=== PATIENT | male | born 1955 | race Caucasian/White ===

== ENCOUNTER 2020-10-06 10:47 | Day surgery (SDC) | payer BC, MEDICARE ==
[2020-10-05 12:35] LABS: BASOPHILS % (AUTO) 0.5 % (0-1); EOSINOPHILS # (AUTO) 0.1 X10'3 (0-0.9); EOSINOPHILS % (AUTO) 1.4 % (0-6); HEMATOCRIT 46.7 % (42.0-52.0); HEMOGLOBIN 15.3 g/dl (14.0-17.9); LYMPHOCYTES % (AUTO) 21.2 % (21-51); MEAN CORPUSCULAR HEMOGLOBIN 27.5 PG (27.0-31.0); MEAN CORPUSCULAR HGB CONC 32.8 g/dL (33.0-36.5); MEAN CORPUSCULAR VOLUME 84.1 FL (78-98); MEAN PLATELET VOLUME 8.9 FL (7.4-10.4); MONOCYTES # (AUTO) 0.7 X10'3 (0-0.9); MONOCYTES % (AUTO) 7.8 % (2-12); NEUTROPHILS # (AUTO) 6.4 X10'3 (1.8-7.7); NEUTROPHILS % (AUTO) 69.1 % (42-75); PLATELET COUNT 159 X10'3 (140-440); RED BLOOD COUNT 5.56 X10'6 (4.70-6.10); RED CELL DISTRIBUTION WIDTH 14.7 % (11.5-14.5); WHITE BLOOD COUNT 9.2 X10'3 (4.5-11.0)
[2020-10-05 12:48] LABS: ALBUMIN 3.9 G/DL (3.4-5.0); ANION GAP 8 (8-16); BLOOD UREA NITROGEN 16 MG/DL (7-18); BUN/CREATININE RATIO 17.4 (5.4-32.0); CALCIUM 9.4 MG/DL (8.5-10.1); CHLORIDE 105 MMOL/L (99-107); CREATININE 0.92 MG/DL (0.60-1.10); GLUCOSE 96 MG/DL (70-104); POTASSIUM 4.2 MMOL/L (3.5-5.1); SODIUM 141 MMOL/L (135-145); TOTAL CARBON DIOXIDE 28.4 MMOL/L (24-32); eGFR 83 ML/MIN
[2020-10-05 12:49] LABS: PARTIAL THROMBOPLASTIN TIME 29 SECONDS (22-32)
[~2020-10-06] VITALS: Ht 185.4 cm; Wt 104.9 kg
[2020-10-06] VITALS (10 sets, daily range): BP systolic 118–153; BP diastolic 53–82
[~2020-10-06 10:47] MED LIST: ASPI-41 PO; HYDR-4353 PO; LEVO500T89 PO; METO25TA6 PO; NIA500ERT PO
[2020-10-06] MEDS ORDERED: LIDOcaine/PRILOcaine 5gm cream TP ONE (11:05)
[2020-10-06] MEDS ORDERED: normal saline 1,000 ML IV SCH (11:05)
[2020-10-06] MEDS ORDERED: LORazepam 0.5 MG tablet PO PRN (11:05)
[2020-10-06] MEDS ORDERED: diphenhydrAMINE 25mg capsule PO PRN (11:05)
[2020-10-06] MEDS ORDERED: METO50TA16 PO (11:17)
[2020-10-06] MEDS ORDERED: ADV50100 IH (11:17)
[2020-10-06] MEDS ORDERED: ALBU8.5H8 INH (11:17)
[2020-10-06] MEDS ORDERED: PRAV40TA3 PO (11:17)
[2020-10-06] MEDS ORDERED: ASCO500C17 PO (11:17)
[2020-10-06] MEDS ORDERED: MV-M1TAB19 PO (11:17)
[2020-10-06] MEDS ORDERED: TRAZ-251 PO (11:17)
[2020-10-06] MEDS ORDERED: CA C1TAB86 PO (11:17)
[2020-10-06] MEDS ORDERED: NIAC500C3 PO (11:17)
[2020-10-06] MEDS ORDERED: LIDOcaine 1% (10mg/ml)w/preservative injection 20ml MDV ONE (11:24)
[2020-10-06] MEDS ORDERED: heparin 1,000unit/ml 10ml vial 10 ML ONE (11:25)
[2020-10-06] MEDS ORDERED: midazolam 2 mg/2 ml injection ONE (11:25)
[2020-10-06] MEDS ORDERED: iohexol 350 MG/1 ML 200ml bottle ONE (11:25)
[2020-10-06] MEDS ORDERED: heparin 1,000 UNITS/NS 500ml 500 ML ONE ×2 (11:25)
[2020-10-06] MEDS ORDERED: nitroGLYCERIN-Tridil 50MG/D5W 250 ML IV ONE (11:25)
[2020-10-06] MEDS ORDERED: fentaNYL/PF 50MCG/1 ML 2ML syringe ONE (11:25)
[2020-10-06] MEDS ORDERED: iohexol 350 MG/ML 50ML vial IV ONE (11:25)
[2020-10-06] MEDS ORDERED: normal saline 1,000 ML IV ONE (13:05)
== END 2020-10-06 16:55 | disposition home or self-care (01) ==
LOC: SSTAY O 10:47
PROVIDERS: ATTEND Internal Medicine Cardiovascular Disease
DX: R94.39 Abnormal result of other cardiovascular function study (principal); I25.119 Atherosclerotic heart disease of native coronary artery with unspecified angina pectoris; I25.82 Chronic total occlusion of coronary artery; E78.5 Hyperlipidemia, unspecified; J44.9 Chronic obstructive pulmonary disease, unspecified; I25.2 Old myocardial infarction; I10 Essential (primary) hypertension; Z79.01 Long term (current) use of anticoagulants; Z95.5 Presence of coronary angioplasty implant and graft; Z79.899 Other long term (current) drug therapy; Z79.82 Long term (current) use of aspirin; Z98.1 Arthrodesis status; Z96.653 Presence of artificial knee joint, bilateral; Z98.890 Other specified postprocedural states; Z87.891 Personal history of nicotine dependence; Z82.49 Family history of ischemic heart disease and other diseases of the circulatory system
CPT/HCPCS: 36415; 76937; 80048; 85025; 85610; 85730; 93005; 93459; 99152; 99153; C1760; C1769; J1644; J2001; J2250; J3010; Q9967; 93567; A4620; A6258; J3490

== ENCOUNTER 2024-06-04 10:28 | Day surgery (SDC) | payer BC, MEDICARE ==
[2024-06-03 13:45] LABS: BASOPHILS # (AUTO) 0.1 X10'3 (0-0.2); BASOPHILS % (AUTO) 0.7 % (0-1); EOSINOPHILS # (AUTO) 0.1 X10'3 (0-0.9); EOSINOPHILS % (AUTO) 0.6 % (0-6); HEMATOCRIT 41.7 % (42.0-52.0); HEMOGLOBIN 13.8 g/dl (14.0-17.9); LYMPHOCYTES # (AUTO) 1.5 X10'3 (1.1-4.8); MEAN CORPUSCULAR HGB CONC 33.1 g/dL (33.0-36.5); MEAN CORPUSCULAR VOLUME 81.5 FL (78-98); MEAN PLATELET VOLUME 8.7 FL (7.4-10.4); MONOCYTES # (AUTO) 0.9 X10'3 (0-0.9); MONOCYTES % (AUTO) 9.6 % (2-12); NEUTROPHILS # (AUTO) 6.8 X10'3 (1.8-7.7); NEUTROPHILS % (AUTO) 73.1 % (42-75); PLATELET COUNT 151 X10'3 (140-440); RED BLOOD COUNT 5.11 X10'6 (4.70-6.10); RED CELL DISTRIBUTION WIDTH 15.9 % (11.5-14.5); WHITE BLOOD COUNT 9.3 X10'3 (4.5-11.0)
[2024-06-03 13:56] LABS: ALBUMIN 3.4 G/DL (3.4-5.0); ANION GAP 8 (8-16); BLOOD UREA NITROGEN 19 MG/DL (7-18); CALCIUM 8.8 MG/DL (8.5-10.1); CHLORIDE 104 MMOL/L (99-107); CREATININE 1.36 MG/DL (0.60-1.10); GLUCOSE 111 MG/DL (70-104); SODIUM 139 MMOL/L (135-145); eGFR 52 ML/MIN
[2024-06-03 14:00] LABS: APTT 27 SECONDS (22-32); INR 1.1 INR; PROTHROMBIN TIME 11.4 SECONDS (9.0-12.0)
[2024-06-04] VITALS (11 sets, daily range): BP systolic 111–166; BP diastolic 72–118; PULSE 68–79; RESP 12–14; TEMP 98.2; O2SAT 92–97
[~2024-06-04] VITALS: Ht 182.9 cm; Wt 99.6 kg
[~2024-06-04 10:28] MED LIST changes: +ADV50100 IH; +ALBU8.5H17 INH; +ASCO500C17 PO; -ASPI-41 PO; +CA C1TAB86 PO; -LEVO500T89 PO; -METO25TA6 PO; +METO50TA16 PO; +MV-M1TAB19 PO; -NIA500ERT PO; +NIAC500C8 PO; +PRAV40TA3 PO; +TRAZ-251 PO
[2024-06-04] MEDS ORDERED: normal saline 1,000 ML IV SCH (10:45)
[2024-06-04] MEDS ORDERED: ZOLP12.570 PO (11:48)
[2024-06-04] MEDS ORDERED: ROSU40TA71 PO (11:48)
[2024-06-04] MEDS ORDERED: OXYC1TAB17 PO (11:54)
[2024-06-04] MEDS ORDERED: LOSA25TA41 PO (11:54)
[2024-06-04] MEDS ORDERED: ASPI-611 PO (11:54)
[2024-06-04] MEDS: diphenhydrAMINE 25mg capsule PO PRN (12:00)
[2024-06-04] MEDS: sodium bicarbonate 1meq/ml syr 150 ML in dextrose 5%-water 1,000 ML IV SCH (12:00)
[2024-06-04] MEDS: LORazepam 0.5 MG tablet PO PRN (12:00)
[2024-06-04] MEDS ORDERED: verapamil 2.5 mg/ml inj IV ONE (13:25)
[2024-06-04] MEDS ORDERED: fentaNYL/PF 50MCG/1 ML 2ML syringe ONE (13:25)
[2024-06-04] MEDS ORDERED: LIDOcaine 1% (10mg/ml) 2ml vial ONE (13:25)
[2024-06-04] MEDS ORDERED: heparin 1,000unit/ml 10ml vial 10 ML ONE (13:26)
[2024-06-04] MEDS ORDERED: iohexol 350MG/ML 100ml bottle IV ONE ×2 (13:26→14:21)
[2024-06-04] MEDS ORDERED: midazolam 1 mg/ML 2ml injection ONE (13:26)
[2024-06-04] MEDS ORDERED: nitroGLYCERIN 500mcg/5mL D5W 5 ML IV ONE (13:30)
[2024-06-04] MEDS ORDERED: iohexol 350 MG/ML 50ML vial IV ONE (13:31)
[2024-06-04 14:48] LABS: ISTAT HGB ART 13.6 g/dl (14.0-17.9); ISTAT Hct ART 40 %PCV (42-52); ISTAT O2 SATURATION ARTERIAL 92 % (95-98); ISTAT SOURCE ART
[2024-06-04] MEDS ORDERED: HYDROcodone/acetaminophen 10/325mg tab PO PRN (15:30)
[2024-06-04] MEDS ORDERED: HYDROcodone/acetaminophen 5mg/325mg tablet PO PRN (15:30)
[2024-06-04] MEDS ORDERED: ISOS60TA71 PO (16:38)
[2024-06-04] MEDS ORDERED: DAPA10TA PO (19:02)
[2024-06-04] MEDS ORDERED: FURO-150 PO (19:02)
== END 2024-06-04 19:15 | disposition home or self-care (01) ==
LOC: SSTAY O 10:28
PROVIDERS: ATTEND Internal Medicine Cardiovascular Disease
DX: R94.39 Abnormal result of other cardiovascular function study (principal); I25.119 Atherosclerotic heart disease of native coronary artery with unspecified angina pectoris; I45.10 Unspecified right bundle-branch block; I25.2 Old myocardial infarction; I11.9 Hypertensive heart disease without heart failure; E11.9 Type 2 diabetes mellitus without complications; I48.0 Paroxysmal atrial fibrillation; J44.9 Chronic obstructive pulmonary disease, unspecified; E78.5 Hyperlipidemia, unspecified; K21.9 Gastro-esophageal reflux disease without esophagitis; G47.30 Sleep apnea, unspecified; F17.211 Nicotine dependence, cigarettes, in remission; Z79.891 Long term (current) use of opiate analgesic; Z79.899 Other long term (current) drug therapy; Z95.1 Presence of aortocoronary bypass graft; Z96.653 Presence of artificial knee joint, bilateral; Z95.5 Presence of coronary angioplasty implant and graft; Z98.890 Other specified postprocedural states; Z82.49 Family history of ischemic heart disease and other diseases of the circulatory system
CPT/HCPCS: 36415; 76937; 80048; 82803; 85014; 85025; 85610; 85730; 93005; 93461; 99152; 99153; A6258; J1644; J2250; J3010; J3490; J7030; J7070; Q0163; Q9967; A6402; C1725; C1751; C1894

== ENCOUNTER 2024-08-22 09:03 | Inpatient (IN) | payer BC, MEDICARE ==
[2024-08-22] VITALS (9 sets, daily range): BP systolic 131; BP diastolic 80; PULSE 73–93; RESP 16–26; TEMP 99.2; O2SAT 93–99
[~2024-08-22] VITALS: Ht 182.9 cm; Wt 102.0 kg
[~2024-08-22 09:03] MED LIST changes: -ASCO500C17 PO; +ASPI-611 PO; -CA C1TAB86 PO; +DAPA10TA PO; +FURO-150 PO; -HYDR-4353 PO; +LOSA25TA41 PO; -METO50TA16 PO; -MV-M1TAB19 PO; -NIAC500C8 PO; +OXYC1TAB17 PO; -PRAV40TA3 PO; +ROSU40TA71 PO; -TRAZ-251 PO; +ZOLP12.570 PO
[2024-08-22] MEDS: ipratropium/albuterol 3ml nebule NEB ONE (09:34)
[2024-08-22 09:49] LABS: BASOPHILS # (AUTO) 0.1 X10'3 (0-0.2); BASOPHILS % (AUTO) 0.7 % (0-1); EOSINOPHILS # (AUTO) 0.1 X10'3 (0-0.9); EOSINOPHILS % (AUTO) 1.3 % (0-6); HEMATOCRIT 43.8 % (42.0-52.0); HEMOGLOBIN 14.1 g/dl (14.0-17.9); LYMPHOCYTES # (AUTO) 2.4 X10'3 (1.1-4.8); LYMPHOCYTES % (AUTO) 21.3 % (21-51); MEAN CORPUSCULAR HEMOGLOBIN 25.8 PG (27.0-31.0); MEAN CORPUSCULAR HGB CONC 32.2 g/dL (33.0-36.5); MEAN CORPUSCULAR VOLUME 80.1 FL (78-98); MEAN PLATELET VOLUME 8.8 FL (7.4-10.4); MONOCYTES # (AUTO) 0.9 X10'3 (0-0.9); MONOCYTES % (AUTO) 8.5 % (2-12); NEUTROPHILS # (AUTO) 7.5 X10'3 (1.8-7.7); NEUTROPHILS % (AUTO) 68.2 % (42-75); PLATELET COUNT 223 X10'3 (140-440); RED BLOOD COUNT 5.47 X10'6 (4.70-6.10)
[2024-08-22] MEDS ORDERED: iohexol 350MG/ML 100ml bottle IV ONE (09:54)
[2024-08-22 10:06] LABS: ALANINE AMINOTRANSFERASE 15 U/L (12-78); ALBUMIN 3.2 G/DL (3.4-5.0); ALBUMIN/GLOBULIN RATIO 0.8 (1.1-1.5); ALKALINE PHOSPHATASE 131 IU/L (46-116); ANION GAP 13 (8-16); ASPARTATE AMINO TRANSFERASE 25 U/L (10-37); BILIRUBIN,TOTAL 1.6 MG/DL (0.1-1.0); BLOOD UREA NITROGEN 14 MG/DL (7-18); CALCIUM 8.9 MG/DL (8.5-10.1); CHLORIDE 101 MMOL/L (99-107); CREATININE 1.27 MG/DL (0.60-1.10); GLUCOSE 81 MG/DL (70-104); SODIUM 136 MMOL/L (135-145); TOTAL CARBON DIOXIDE 22.2 MMOL/L (24-32); TOTAL PROTEIN 7.3 G/DL (6.4-8.2); eCRCL 62 ML/MIN; eGFR 57 ML/MIN
[2024-08-22 10:15] LABS: PRO BRAIN NATRIURETIC PEPTIDE 10026 PG/ML (0-125)
[2024-08-22] MEDS ORDERED: ISOS60TA71 PO (11:47)
[2024-08-22] MEDS: oxyCODONE/APAP 10/325mg tablet PO ONE (12:04)
[2024-08-22] MEDS: furosemide 10 MG/1 ML 10ml inj IV ONE (13:05)
[2024-08-22] MEDS ORDERED: acetaminophen 325mg tablet PO PRN (13:10)
[2024-08-22] MEDS ORDERED: ondansetron/PF 4mg/2ml inj IV PRN (13:10)
[2024-08-22] MEDS ORDERED: potassium Cl 20 mEq SR tablet PO PRN ×2 (13:10)
[2024-08-22] MEDS ORDERED: mag hydrox/Alum hydrox/simeth 30ml oral suspension PO PRN (13:10)
[2024-08-22] MEDS ORDERED: magnesium sulf-water 4G/100mL 100 ML IV PRN (13:10)
[2024-08-22] MEDS ORDERED: magnesium sulf-water 2g/50mL 50 ML IV PRN (13:10)
[2024-08-22] MEDS ORDERED: potassium Cl 40MEQ/1/2NS 520ml 520 ML IV PRN (13:10)
[2024-08-22] MEDS ORDERED: magnesium Cl slow-release 64mg tablet PO PRN (13:10)
[2024-08-22] MEDS: PERFLUTREN PROTEIN-A MICROSPHR (Optison) 0.22 MG/ML 3ML VIAL IV ONE (13:19)
[2024-08-22] MEDS ORDERED: hydrALAZINE 20mg/ml inj. IV PRN (13:20)
[2024-08-22] MEDS: MESSAGE TO NURSING IV ONE (15:30)
[2024-08-22 15:32] LABS: BASOPHILS # (AUTO) 0.1 X10'3 (0-0.2); BASOPHILS % (AUTO) 0.6 % (0-1); EOSINOPHILS # (AUTO) 0.1 X10'3 (0-0.9); EOSINOPHILS % (AUTO) 0.7 % (0-6); HEMATOCRIT 36.8 % (42.0-52.0); HEMOGLOBIN 11.8 g/dl (14.0-17.9); LYMPHOCYTES # (AUTO) 1.2 X10'3 (1.1-4.8); LYMPHOCYTES % (AUTO) 12.1 % (21-51); MEAN CORPUSCULAR HEMOGLOBIN 25.1 PG (27.0-31.0); MEAN CORPUSCULAR HGB CONC 31.9 g/dL (33.0-36.5); MEAN CORPUSCULAR VOLUME 78.6 FL (78-98); MEAN PLATELET VOLUME 8.2 FL (7.4-10.4); MONOCYTES # (AUTO) 0.9 X10'3 (0-0.9); MONOCYTES % (AUTO) 9.7 % (2-12); NEUTROPHILS # (AUTO) 7.3 X10'3 (1.8-7.7); NEUTROPHILS % (AUTO) 76.9 % (42-75); PLATELET COUNT 180 X10'3 (140-440); RED BLOOD COUNT 4.68 X10'6 (4.70-6.10); RED CELL DISTRIBUTION WIDTH 16.5 % (11.5-14.5); WHITE BLOOD COUNT 9.5 X10'3 (4.5-11.0)
[2024-08-22 15:45] LABS: ANION GAP 7 (8-16); BLOOD UREA NITROGEN 15 MG/DL (7-18); BUN/CREATININE RATIO 11.4 (10.0-20.0); CHLORIDE 102 MMOL/L (99-107); CREATININE 1.32 MG/DL (0.60-1.10); GLUCOSE 79 MG/DL (70-104); POTASSIUM 3.8 MMOL/L (3.5-5.1); SODIUM 134 MMOL/L (135-145); TOTAL CARBON DIOXIDE 25.3 MMOL/L (24-32)
[2024-08-22 15:46] LABS: ALANINE AMINOTRANSFERASE 12 U/L (12-78); ALBUMIN 2.7 G/DL (3.4-5.0); ALBUMIN/GLOBULIN RATIO 0.8 (1.1-1.5); ALKALINE PHOSPHATASE 105 IU/L (46-116); ASPARTATE AMINO TRANSFERASE 19 U/L (10-37); BILIRUBIN,TOTAL 1.6 MG/DL (0.1-1.0); CALCIUM 8.1 MG/DL (8.5-10.1); TOTAL PROTEIN 6.1 G/DL (6.4-8.2); eCRCL 60 ML/MIN; eGFR 54 ML/MIN
[2024-08-22] MEDS: heparin 10,000 units/1 ML INJ IV ONE (15:58)
[2024-08-22] MEDS ORDERED: heparin, porcine 5000 units/ml vial SQ SCH (16:00)
[2024-08-22] MEDS: methylPREDNISolone sod succ 125mg/2ml vial IV SCH (16:00)
[2024-08-22] MEDS: heparin 25,000 UNIT/250ml bag 250 ML IV PRN (16:06)
[2024-08-22] MEDS: CefTRIAXone 2gm/D5W 50ml BAG 50 ML IV SCH (16:57)
[2024-08-22] MEDS: ipratropium/albuterol 3ml nebule NEB SCH (17:11)
[2024-08-22] MEDS: metoprolol succinate 25mg (24-HOUR) SR. Tablet PO SCH (17:28)
[2024-08-22] MEDS: azithromycin/NS 500mg/250ml 250 ML IV SCH (17:38)
[2024-08-22 17:45] LABS: ABG BASE EXCESS -3.5 mmol/L (-2.0-3.0); ABG HCO3 19.8 mmol/L (21.0-28.0); ABG OXYGEN SATURATION 95.4 % (94.0-98.0); ABG PCO2 (T) 30.7 mmHg (35.0-48.0); ABG PH (T) 7.428 (7.350-7.450); ABG PO2 (T) 75.2 mmHg (83.0-108.0); ALLEN'S TEST POSITIVE; FCOHb 1.2 % (0.5-1.5); FHHb 4.5 % (0.0-5.0); FLOW 3 L/min; FO2Hb 94.3 % (94.0-98.0); MODE NASAL CANNULA
[2024-08-22] MEDS ORDERED: HYDROcodone/acetaminophen 5mg/325mg tablet PO PRN (18:05)
[2024-08-22] MEDS ORDERED: oxyCODONE/APAP 10/325mg tablet PO PRN (19:10)
[2024-08-22] MEDS: sennosides/docusate sodium tablet PO SCH (19:30)
[2024-08-22] MEDS: docusate sod 100mg capsule PO SCH (19:31)
[2024-08-22] MEDS: oxyCODONE/APAP 10/325mg tablet PO PRN (19:32)
[2024-08-22] MEDS: furosemide 40mg/4ml inj IV SCH (19:33)
[2024-08-22] MEDS: K and/or MAG REPLACEMENT MC SCH (19:36)
[2024-08-22] MEDS ORDERED: apixaban 5mg tablet PO SCH (20:00)
[2024-08-23] VITALS (16 sets, daily range): BP systolic 121–143; BP diastolic 72–80; PULSE 80–96; RESP 17–22; TEMP 97.7–99; O2SAT 90–96
[2024-08-23] MEDS: MESSAGE TO NURSING IV ONE ×5 (00:46→22:10)
[2024-08-23 04:14] LABS: ALANINE AMINOTRANSFERASE 15 U/L (12-78); ALBUMIN 2.7 G/DL (3.4-5.0); ALBUMIN/GLOBULIN RATIO 0.7 (1.1-1.5); ALKALINE PHOSPHATASE 107 IU/L (46-116); ANION GAP 8 (8-16); ASPARTATE AMINO TRANSFERASE 17 U/L (10-37); BLOOD UREA NITROGEN 19 MG/DL (7-18); BUN/CREATININE RATIO 14.2 (10.0-20.0); CALCIUM 8.6 MG/DL (8.5-10.1); CHLORIDE 101 MMOL/L (99-107); CREATININE 1.34 MG/DL (0.60-1.10); GLUCOSE 234 MG/DL (70-104); MAGNESIUM 1.8 MG/DL (1.5-2.4); POTASSIUM 3.6 MMOL/L (3.5-5.1); SODIUM 134 MMOL/L (135-145); TOTAL CARBON DIOXIDE 25.3 MMOL/L (24-32); TOTAL PROTEIN 6.4 G/DL (6.4-8.2); eCRCL 59 ML/MIN; eGFR 53 ML/MIN
[2024-08-23 04:15] LABS: BASOPHILS % (AUTO) 0.1 % (0-1); EOSINOPHILS % (AUTO) 0 % (0-6); HEMATOCRIT 36.7 % (42.0-52.0); LYMPHOCYTES # (AUTO) 0.6 X10'3 (1.1-4.8); LYMPHOCYTES % (AUTO) 10.6 % (21-51); MEAN CORPUSCULAR HEMOGLOBIN 25.6 PG (27.0-31.0); MEAN CORPUSCULAR HGB CONC 32.6 g/dL (33.0-36.5); MEAN CORPUSCULAR VOLUME 78.6 FL (78-98); MEAN PLATELET VOLUME 8.5 FL (7.4-10.4); MONOCYTES # (AUTO) 0.2 X10'3 (0-0.9); NEUTROPHILS # (AUTO) 4.6 X10'3 (1.8-7.7); NEUTROPHILS % (AUTO) 86.3 % (42-75); PLATELET COUNT 170 X10'3 (140-440); RED BLOOD COUNT 4.67 X10'6 (4.70-6.10); RED CELL DISTRIBUTION WIDTH 16.6 % (11.5-14.5); WHITE BLOOD COUNT 5.4 X10'3 (4.5-11.0)
[2024-08-23] MEDS ORDERED: DEXTROSE 15 GM of carb/4 tabs (each vial/BOTTLE has 4 tablets) PO PRN ×2 (12:10)
[2024-08-23] MEDS ORDERED: glucagon, human recombinant 1mg kit SUBCUT PRN (12:10)
[2024-08-23] MEDS ORDERED: dextrose 50%-water 50ml dispensing syringe IV PRN ×2 (12:10)
[2024-08-23 13:54] LABS: APTT 56 SECONDS (22-32)
[2024-08-23] MEDS: normal saline 1000ml 1,000 ML IV SCH (14:48)
[2024-08-23 21:09] LABS: APTT 73 SECONDS (22-32)
[2024-08-23] MEDS: amLODIPine 5mg tablet PO SCH (21:21)
[2024-08-23] MEDS: INSULIN LISPRO 100 UNIT/ML INSULN.PEN MULTI-DOSE SQ SCH (21:34)
[2024-08-24] VITALS (19 sets, daily range): BP systolic 119–142; BP diastolic 69–86; PULSE 77–94; RESP 16–21; TEMP 98–98.7; O2SAT 91–97
[2024-08-24] MEDS: LORazepam 2 mg/ml vial IM PRN (00:37)
[2024-08-24] MEDS ORDERED: zolpidem 5mg tablet PO SCH ×2 (00:55→01:00)
[2024-08-24] MEDS: zolpidem 5mg tablet PO SCH (01:00)
[2024-08-24 03:07] LABS: ALANINE AMINOTRANSFERASE 12 U/L (12-78); ALBUMIN 2.8 G/DL (3.4-5.0); ALBUMIN/GLOBULIN RATIO 0.7 (1.1-1.5); ALKALINE PHOSPHATASE 100 IU/L (46-116); ANION GAP 10 (8-16); ASPARTATE AMINO TRANSFERASE 19 U/L (10-37); BILIRUBIN,TOTAL 0.6 MG/DL (0.1-1.0); BLOOD UREA NITROGEN 25 MG/DL (7-18); BUN/CREATININE RATIO 19.7 (10.0-20.0); CALCIUM 8.6 MG/DL (8.5-10.1); CHLORIDE 99 MMOL/L (99-107); CREATININE 1.27 MG/DL (0.60-1.10); GLUCOSE 178 MG/DL (70-104); MAGNESIUM 1.9 MG/DL (1.5-2.4); POTASSIUM 3.5 MMOL/L (3.5-5.1); SODIUM 133 MMOL/L (135-145); TOTAL CARBON DIOXIDE 24.2 MMOL/L (24-32); TOTAL PROTEIN 6.6 G/DL (6.4-8.2); eCRCL 62 ML/MIN; eGFR 57 ML/MIN
[2024-08-24] MEDS: MESSAGE TO NURSING IV ONE ×3 (03:45→17:49)
[2024-08-24] MEDS: atorvastatin 20mg tablet PO SCH (08:36)
[2024-08-24] MEDS: isosorbide mononitrate 30mg tab.SR.24H PO SCH (08:37)
[2024-08-24] MEDS: aspirin 81mg, enteric-coated 1 TAB TABLET.DR PO SCH (08:37)
[2024-08-24] MEDS: losartan 25mg tablet PO SCH (08:38)
[2024-08-24] MEDS: DAPAGLIFLOZIN 10MG TABLET PO SCH (08:38)
[2024-08-24 09:13] LABS: BASOPHILS % (AUTO) 0.1 % (0-1); EOSINOPHILS % (AUTO) 0 % (0-6); HEMATOCRIT 35.9 % (42.0-52.0); HEMOGLOBIN 11.5 g/dl (14.0-17.9); LYMPHOCYTES # (AUTO) 0.6 X10'3 (1.1-4.8); MEAN CORPUSCULAR HEMOGLOBIN 25.2 PG (27.0-31.0); MEAN CORPUSCULAR HGB CONC 31.9 g/dL (33.0-36.5); MEAN CORPUSCULAR VOLUME 78.9 FL (78-98); MEAN PLATELET VOLUME 8.7 FL (7.4-10.4); MONOCYTES # (AUTO) 0.4 X10'3 (0-0.9); MONOCYTES % (AUTO) 3.4 % (2-12); NEUTROPHILS # (AUTO) 11.5 X10'3 (1.8-7.7); NEUTROPHILS % (AUTO) 91.5 % (42-75); PLATELET COUNT 189 X10'3 (140-440); RED BLOOD COUNT 4.56 X10'6 (4.70-6.10); RED CELL DISTRIBUTION WIDTH 16.7 % (11.5-14.5); WHITE BLOOD COUNT 12.6 X10'3 (4.5-11.0)
[2024-08-24] MEDS: HYDROcodone/acetaminophen 10/325mg tab PO PRN (12:42)
[2024-08-24] MEDS: guaiFENesin ER 600mg tablet PO SCH (19:32)
[2024-08-24] MEDS: lactobacillus rhamnosus 10,000 MMU CELLS/CAPSULE PO SCH (19:36)
[2024-08-24] MEDS: oxyCODONE/APAP 10/325mg tablet PO PRN (19:36)
[2024-08-24] MEDS ORDERED: non-formulary drug (Zolpidem Tartrate 1 TAB) PO SCH (21:00)
[2024-08-25] VITALS (20 sets, daily range): BP systolic 128–137; BP diastolic 77–83; PULSE 68–98; RESP 16–24; TEMP 97.8–98.4; O2SAT 92–98
[2024-08-25] MEDS: MESSAGE TO NURSING IV ONE ×3 (00:56→12:16)
[2024-08-25 06:14] LABS: BASOPHILS % (AUTO) 0.1 % (0-1); EOSINOPHILS % (AUTO) 0 % (0-6); HEMATOCRIT 33.3 % (42.0-52.0); HEMOGLOBIN 10.9 g/dl (14.0-17.9); LYMPHOCYTES # (AUTO) 0.5 X10'3 (1.1-4.8); LYMPHOCYTES % (AUTO) 4.9 % (21-51); MEAN CORPUSCULAR HEMOGLOBIN 25.6 PG (27.0-31.0); MEAN CORPUSCULAR HGB CONC 32.8 g/dL (33.0-36.5); MEAN PLATELET VOLUME 9.2 FL (7.4-10.4); MONOCYTES # (AUTO) 0.3 X10'3 (0-0.9); NEUTROPHILS # (AUTO) 9.5 X10'3 (1.8-7.7); PLATELET COUNT 189 X10'3 (140-440); RED BLOOD COUNT 4.27 X10'6 (4.70-6.10); RED CELL DISTRIBUTION WIDTH 16.6 % (11.5-14.5); WHITE BLOOD COUNT 10.3 X10'3 (4.5-11.0)
[2024-08-25 06:21] LABS: ALANINE AMINOTRANSFERASE 43 U/L (12-78); ALBUMIN 2.8 G/DL (3.4-5.0); ALBUMIN/GLOBULIN RATIO 0.8 (1.1-1.5); ALKALINE PHOSPHATASE 100 IU/L (46-116); ANION GAP 10 (8-16); ASPARTATE AMINO TRANSFERASE 57 U/L (10-37); BILIRUBIN,TOTAL 0.6 MG/DL (0.1-1.0); BLOOD UREA NITROGEN 26 MG/DL (7-18); BUN/CREATININE RATIO 20.6 (10.0-20.0); CALCIUM 8.6 MG/DL (8.5-10.1); CHLORIDE 103 MMOL/L (99-107); CREATININE 1.26 MG/DL (0.60-1.10); GLUCOSE 187 MG/DL (70-104); MAGNESIUM 2.1 MG/DL (1.5-2.4); POTASSIUM 3.6 MMOL/L (3.5-5.1); SODIUM 136 MMOL/L (135-145); TOTAL CARBON DIOXIDE 22.7 MMOL/L (24-32); TOTAL PROTEIN 6.5 G/DL (6.4-8.2); eCRCL 62 ML/MIN; eGFR 57 ML/MIN
[2024-08-25] MEDS: magnesium hydroxide 30ml (MOM) UD suspension PO PRN (07:47)
[2024-08-25] MEDS: losartan 25mg tablet PO SCH (07:49)
[2024-08-25] MEDS: ROSUVASTATIN CALCIUM 5 MG TABLET PO SCH (07:50)
[2024-08-25] MEDS: heparin 10,000 units/1 ML INJ IV PRN (12:02)
[2024-08-25] MEDS: apixaban 5mg tablet PO SCH (15:00)
[2024-08-26] VITALS (16 sets, daily range): BP systolic 121–145; BP diastolic 69–96; PULSE 55–93; RESP 14–24; TEMP 97.1–98; O2SAT 94–97
[2024-08-26 05:50] LABS: BASOPHILS % (AUTO) 0.1 % (0-1); EOSINOPHILS % (AUTO) 0 % (0-6); HEMATOCRIT 34.8 % (42.0-52.0); HEMOGLOBIN 11.2 g/dl (14.0-17.9); LYMPHOCYTES # (AUTO) 0.4 X10'3 (1.1-4.8); LYMPHOCYTES % (AUTO) 4.3 % (21-51); MEAN CORPUSCULAR HEMOGLOBIN 25.4 PG (27.0-31.0); MEAN CORPUSCULAR HGB CONC 32.3 g/dL (33.0-36.5); MEAN CORPUSCULAR VOLUME 78.6 FL (78-98); MEAN PLATELET VOLUME 8.6 FL (7.4-10.4); MONOCYTES # (AUTO) 0.2 X10'3 (0-0.9); MONOCYTES % (AUTO) 2.4 % (2-12); NEUTROPHILS # (AUTO) 8.3 X10'3 (1.8-7.7); NEUTROPHILS % (AUTO) 93.2 % (42-75); PLATELET COUNT 192 X10'3 (140-440); RED BLOOD COUNT 4.44 X10'6 (4.70-6.10); RED CELL DISTRIBUTION WIDTH 16.7 % (11.5-14.5)
[2024-08-26 06:04] LABS: ALANINE AMINOTRANSFERASE 113 U/L (12-78); ALBUMIN/GLOBULIN RATIO 0.8 (1.1-1.5); ALKALINE PHOSPHATASE 100 IU/L (46-116); ANION GAP 6 (8-16); ASPARTATE AMINO TRANSFERASE 97 U/L (10-37); BILIRUBIN,TOTAL 0.6 MG/DL (0.1-1.0); BLOOD UREA NITROGEN 25 MG/DL (7-18); BUN/CREATININE RATIO 19.7 (10.0-20.0); CALCIUM 8.3 MG/DL (8.5-10.1); CHLORIDE 103 MMOL/L (99-107); CREATININE 1.27 MG/DL (0.60-1.10); GLUCOSE 183 MG/DL (70-104); MAGNESIUM 2.3 MG/DL (1.5-2.4); POTASSIUM 4.1 MMOL/L (3.5-5.1); SODIUM 135 MMOL/L (135-145); TOTAL CARBON DIOXIDE 25.7 MMOL/L (24-32); TOTAL PROTEIN 6.8 G/DL (6.4-8.2); eCRCL 62 ML/MIN; eGFR 57 ML/MIN
[2024-08-26] MEDS: acetaminophen 325mg tablet PO PRN (07:48)
[2024-08-26] MEDS: CefTRIAXone/D5W-Rocephin 1gm 50 ML IV SCH (17:09)
[2024-08-27] VITALS (12 sets, daily range): BP systolic 147; BP diastolic 88; PULSE 81–93; RESP 16–20; TEMP 97.7; O2SAT 92–98
[2024-08-27 06:09] LABS: BASOPHILS % (AUTO) 0.1 % (0-1); EOSINOPHILS % (AUTO) 0 % (0-6); HEMATOCRIT 34.7 % (42.0-52.0); HEMOGLOBIN 11.1 g/dl (14.0-17.9); LYMPHOCYTES # (AUTO) 0.5 X10'3 (1.1-4.8); LYMPHOCYTES % (AUTO) 6.3 % (21-51); MEAN CORPUSCULAR HEMOGLOBIN 25.4 PG (27.0-31.0); MEAN CORPUSCULAR HGB CONC 32.1 g/dL (33.0-36.5); MEAN CORPUSCULAR VOLUME 79.4 FL (78-98); MEAN PLATELET VOLUME 8.8 FL (7.4-10.4); MONOCYTES # (AUTO) 0.3 X10'3 (0-0.9); MONOCYTES % (AUTO) 3.4 % (2-12); NEUTROPHILS # (AUTO) 6.8 X10'3 (1.8-7.7); NEUTROPHILS % (AUTO) 90.2 % (42-75); PLATELET COUNT 186 X10'3 (140-440); RED BLOOD COUNT 4.37 X10'6 (4.70-6.10); RED CELL DISTRIBUTION WIDTH 16.8 % (11.5-14.5); WHITE BLOOD COUNT 7.5 X10'3 (4.5-11.0)
[2024-08-27 06:18] LABS: ALANINE AMINOTRANSFERASE 134 U/L (12-78); ALBUMIN 2.9 G/DL (3.4-5.0); ALBUMIN/GLOBULIN RATIO 0.8 (1.1-1.5); ALKALINE PHOSPHATASE 98 IU/L (46-116); ANION GAP 8 (8-16); ASPARTATE AMINO TRANSFERASE 72 U/L (10-37); BILIRUBIN,TOTAL 0.7 MG/DL (0.1-1.0); BLOOD UREA NITROGEN 27 MG/DL (7-18); BUN/CREATININE RATIO 22.9 (10.0-20.0); CALCIUM 8.3 MG/DL (8.5-10.1); CHLORIDE 104 MMOL/L (99-107); CREATININE 1.18 MG/DL (0.60-1.10); GLUCOSE 183 MG/DL (70-104); POTASSIUM 4.4 MMOL/L (3.5-5.1); SODIUM 137 MMOL/L (135-145); TOTAL CARBON DIOXIDE 24.8 MMOL/L (24-32); TOTAL PROTEIN 6.4 G/DL (6.4-8.2); eCRCL 67 ML/MIN; eGFR 62 ML/MIN
[2024-08-27] MEDS: azithromycin/NS 500mg/250ml 250 ML IV SCH (08:01)
[2024-08-27] MEDS ORDERED: APIX5TAB3 PO (13:56)
[2024-08-27] MEDS: pantoprazole 40mg Tablet.DR PO SCH (14:44)
[2024-09-01] MEDS ORDERED: apixaban 5mg tablet PO SCH (20:00)
== END 2024-08-27 16:40 | DRG 175 ==
LOC: ER 09:03 → ED HOLD 13:12 → UNDOADMIN 13:12 → ED HOLD 18:12 → ORTHO 4S 20:28 → ED HOLD 20:28
PROVIDERS: ADMIT Nurse Practitioner Family; ATTEND Nurse Practitioner Family
PROC: B32T1ZZ Computerized Tomography (CT Scan) of Left Pulmonary Artery using Low Osmolar Contrast (ICD-10-PCS; principal; 2024-08-22)
PROC: B3201ZZ Computerized Tomography (CT Scan) of Thoracic Aorta using Low Osmolar Contrast (ICD-10-PCS; 2024-08-22)
PROC: B32S1ZZ Computerized Tomography (CT Scan) of Right Pulmonary Artery using Low Osmolar Contrast (ICD-10-PCS; 2024-08-22)
PROC: 5A09357 Assistance with Respiratory Ventilation, Less than 24 Consecutive Hours, Continuous Positive Airway Pressure (ICD-10-PCS; 2024-08-22)
PROC: 5A09357 Assistance with Respiratory Ventilation, Less than 24 Consecutive Hours, Continuous Positive Airway Pressure (ICD-10-PCS; 2024-08-24)
PROC: 5A09357 Assistance with Respiratory Ventilation, Less than 24 Consecutive Hours, Continuous Positive Airway Pressure (ICD-10-PCS; 2024-08-25)
PROC: 5A09357 Assistance with Respiratory Ventilation, Less than 24 Consecutive Hours, Continuous Positive Airway Pressure (ICD-10-PCS; 2024-08-27)
DX: I26.99 Other pulmonary embolism without acute cor pulmonale (principal); I50.33 Acute on chronic diastolic (congestive) heart failure; J96.01 Acute respiratory failure with hypoxia; E87.3 Alkalosis; E78.5 Hyperlipidemia, unspecified; G47.33 Obstructive sleep apnea (adult) (pediatric); I11.0 Hypertensive heart disease with heart failure; I25.10 Atherosclerotic heart disease of native coronary artery without angina pectoris; I48.91 Unspecified atrial fibrillation; Z96.653 Presence of artificial knee joint, bilateral; G89.29 Other chronic pain; K21.9 Gastro-esophageal reflux disease without esophagitis; M54.9 Dorsalgia, unspecified; I45.10 Unspecified right bundle-branch block; I27.20 Pulmonary hypertension, unspecified; R73.9 Hyperglycemia, unspecified; I25.2 Old myocardial infarction; Z98.84 Bariatric surgery status; Z82.49 Family history of ischemic heart disease and other diseases of the circulatory system; Z79.899 Other long term (current) drug therapy; Z79.82 Long term (current) use of aspirin; Z88.8 Allergy status to other drugs, medicaments and biological substances
CPT/HCPCS: 36415; 36600; 71045; 71275; 80053; 82803; 82948; 83036; 83605; 83735; 83880; 84145; 84484; 85018; 85025; 85730; 87040; 87081; 93005; 93306; 94640; 94760; 96374; 97116; 97161; 97530; 97535; 99291; A4615; A6258; A6590; G0378; J0456; J0696; J1644; J1815; J1940; J2060; J2919; J7030; Q9967